=== PATIENT | female | born 1930 | race Caucasian/White ===

== ENCOUNTER 2017-03-31 09:37 | Inpatient (IN) | payer OTHER ==
[2017-03-31 09:49] VITALS: BMI 26.4
--- NOTE | 2017-03-31 12:32 | ED.PDOC ---
General ED Provider: Dr. AILYN NUNEZ Chief Complaint: Respiratory Complaint Stated Complaint: Cough, chest congestion, shortness of breath, weakness. Onset 1 week ago. Called PCP who discouraged OV due to multiple patients with flu and called in Rx of Tamiflu. Has not made any positive progress to improvement but feels worsened. Cough not productive.Diagnostic testing has not been completed. Time Seen by Physician: 12:30 Mode of Arrival: Wheelchair Information Source: Patient Exam Limitations: No limitations Primary Care Provider: AILYN FERRER Referred to ED by: Other (self/pcp) Nursing and Triage Documentation Reviewed and Agree: Yes Reviewed sepsis parameters & appropriate labs ordered?: Yes System Inflammatory Response Syndrome: Not Applicable Sepsis Protocol: For patient's 13 years and over: Temp is 96.8 and below OR 101 and greater Pulse >90 BPM Resp >20/minute Acutely Altered Mental Status Are patient's symptoms suggestive of a new infection, such as: -Pneumonia -Skin, Soft Tissue -Endocarditis -UTI -Bone, Joint Infection -Implantable Device -Acute Abdominal Infection -Wound Infection -Meningitis -Blood Stream Catheter Infection -Unknown Respiratory Complaint Exam - Respiratory Complaint/Exam Symptoms Are: Still present, Worse Timing: Constant Initial Severity: Moderate Current Severity: Moderate Location: Chest Character: Reports: Non-productive cough, Dry cough Aggravating: Reports: Exertion, Recumbent position Alleviating: Reports: None Associated Signs and Symptoms: Reports: Dyspnea, Fever, Wheezing. Denies: Chest pain, Pleuritic chest pain, Hemoptysis, Dizziness, Calf pain, Sinus discomfort, Vomiting, Sore throat, Weight loss, Decreased oral intake, Increased thirst, Increased appetite, Increased urination History of Healthcare-Acquired Pneumonia: No Review of Systems - Review Of Systems Constitutional: Reports: Chills, Fever Eyes: Reports: No symptoms Cardiac: Reports: No symptoms GI: Reports: No symptoms : Reports: No symptoms Musculoskeletal: Reports: No symptoms Skin: Reports: No symptoms Neurological: Reports: No symptoms Endocrine: Reports: No symptoms Hematologic/Lymphatic: Reports: No symptoms All Other Systems: Reviewed and Negative Past Medical History - Past Medical History Endocrine: Reports: Dyslipidemia Cardiovascular: Reports: Hypertension Respiratory: Reports: None Hematological: Reports: None Gastrointestinal: Reports: None Genitourinary: Reports: CKD Neuro/Psych: Reports: TIA Musculoskeletal: Reports: Arthritis, Back Pain Cancer: Reports: None Last Menstrual Period: unknown Other Pertinent Past Medical History: GALLBLADDER, TOTAL KNEE, PACEMAKER, BACK SURGERY - Surgical History General Surgical History: Reports: Cholecystectomy, Pacemaker, Orthopedic ( TOTAL KNEE), Back Surgery - Family History Family History: Reports: Unknown - Social History Smoking Status: Never smoker Hx Substance Use: No Alcohol Screening: None Physical Exam - Physical Exam Appearance: Thin Ill-appearing: Moderate Pain Distress: Mild Eyes: GENA, EOMI, Conjunctiva clear ENT: Ears normal, Nose normal Neck: Nonsupple Respiratory: Airway patent, Rhonchi, Retractions Cardiovascular: RRR, Pulses normal GI/: Soft, Nontender, No masses, Bowel sounds normal Musculoskeletal: Normal strength, ROM intact Skin: Warm, Dry, Pale Neurological: Sensation intact, Alert, Oriented Psychiatric: Mood appropriate, Anxious Critical Care Note - Critical Care Note Total Time (mins): 30 Course - Course Hematology/Chemistry: 03/31/17 12:58 03/31/17 12:58 Orders, Labs, Meds: Lab Review 03/31/17 03/31/17 03/31/17 12:42 12:58 12:58 WBC 4.77 RBC 4.21 Hgb 12.3 Hct 37.3 MCV 88.6 MCH 29.2 MCHC 33.0 RDW Coeff of Pat 13.7 Plt Count 163 Immature Gran % (Auto) 0.2 Neut % (Auto) 54.3 Lymph % (Auto) 27.7 [place] % (Auto) 13.0 H Eos % (Auto) 4.2 Baso % (Auto) 0.6 Immature Gran # (Auto) 0.0 Neut # 2.6 Lymph # 1.3 [place] # 0.6 Eos # 0.2 Baso # 0.0 Puncture Site O2 Saturation ABG pH ABG pCO2 ABG pO2 ABG HCO3 ABG Total CO2 ABG Base Excess Pavel Test FiO2 % Sodium 143 Potassium 3.4 L Chloride 102 Carbon Dioxide 34 H Anion Gap 10.4 BUN 14 Creatinine 0.82 Estimated GFR (MDRD) 66.00 BUN/Creatinine Ratio 17.07 Glucose 92 Calcium 9.2 Total Bilirubin 0.3 AST 31 ALT 24 Alkaline Phosphatase 90 Total Protein 6.8 Albumin 3.2 L Globulin 3.6 Albumin/Globulin Ratio 0.89 Urine Color Yellow Urine Clarity Clear Urine pH 7.0 Ur Specific [place] 1.015 Urine Protein Negative Urine Glucose (UA) Negative Urine Ketones Negative Urine Blood Negative Urine Nitrite Negative Urine Bilirubin Negative Urine Urobilinogen 0.2 Ur Leukocyte Esterase Negative Influenza A (Rapid) Influenza B (Rapid) 03/31/17 03/31/17 14:00 14:30 WBC RBC Hgb Hct MCV MCH MCHC RDW Coeff of Pat Plt Count Immature Gran % (Auto) Neut % (Auto) Lymph % (Auto) [place] % (Auto) Eos % (Auto) Baso % (Auto) Immature Gran # (Auto) Neut # Lymph # [place] # Eos # Baso # Puncture Site R rad O2 Saturation 93.0 L ABG pH 7.502 H* ABG pCO2 39.4 ABG pO2 60.0 L ABG HCO3 30.9 H ABG Total CO2 32 H ABG Base Excess 8 H Pavel Test + FiO2 % 21.0 Sodium Potassium Chloride Carbon Dioxide Anion Gap BUN Creatinine Estimated GFR (MDRD) BUN/Creatinine Ratio Glucose Calcium Total Bilirubin AST ALT Alkaline Phosphatase Total Protein Albumin Globulin Albumin/Globulin Ratio Urine Color Urine Clarity Urine pH Ur Specific [employer] [place] Urine Protein Urine Glucose (UA) Urine Ketones Urine Blood Urine Nitrite Urine Bilirubin Urine Urobilinogen Ur Leukocyte Esterase Influenza A (Rapid) Negative by naat Influenza B (Rapid) Negative by naat Orders Category Date Time Status ABG DRAW REQUEST Stat CARDIO 03/31/17 13:37 Completed EKG-(ED ONLY) Stat CARDIO 03/31/17 12:39 Completed NEBULIZER TREATMENT Stat CARDIO 03/31/17 12:40 Completed ABG Stat LAB 03/31/17 14:00 Completed CBC W/ AUTO DIFF Stat LAB 03/31/17 12:58 Completed COMPREHENSIVE METABOLIC PANEL Stat LAB 03/31/17 12:58 Completed FLU A & B RAPID TEST [MOLECULAR FLU A/B] Stat LAB 03/31/17 14:30 Completed SPUTUM CULTURE Stat LAB 03/31/17 12:39 Uncollected URINALYSIS C & S IF INDICATED Stat LAB 03/31/17 12:42 Completed Albuterol Sulfate 0.083% Neb [Albuterol 0.083% Neb] MEDS 03/31/17 12:39 Discontinued 1 vial NEB ONCE STA CHEST, 2 VIEWS PA & LAT Stat RADS 03/31/17 12:39 Completed Medications Generic Name Dose Route Start Last Admin Trade Name Freq PRN Reason Stop Dose Admin Acetaminophen 650 mg 03/31/17 17:08 Tylenol PO Q6H PRN MODERATE PAIN Clopidogrel Bisulfate 75 mg 12/29/17 09:00 Plavix PO DAILY [facility] Furosemide 40 mg 04/01/17 09:00 Lasix Tab PO DAILY [facility] Gabapentin 100 mg 03/31/17 21:00 Neurontin PO BID DAVID Levofloxacin/Dextrose 500 mg/ 100 mls @ 100 mls/hr 03/31/17 17:30 Sterile Water IV DAILY DAVID Lorazepam 1 mg 03/31/17 21:00 Ativan PO BEDTIME DAVID Metoprolol Tartrate 25 mg 03/31/17 21:00 Lopressor PO BID DAVID Non-Formulary Medication 1 each 03/31/17 21:00 Amlodipine Besylate/Benazepril [Lotrel 10-40 Mg Capsule] PO BEDTIME DAVID Non-Formulary Medication 0.1 mg 03/31/17 21:00 Clonidine Hcl [Catapres] PO BID DAVID Non-Formulary Medication 1 each 04/01/17 09:00 Multivitamin,Ther And Minerals [Vitamin And Minerals] PO DAILY [facility] Pantoprazole Sodium 40 mg 04/01/17 09:00 Protonix PO DAILY [facility] Polyethylene Glycol 17 gm 03/31/17 21:00 Miralax PO BEDTIME [facility] Potassium Chloride 10 meq 04/01/17 09:00 K-Dur PO DAILY [facility] Discontinued Medications Generic Name Dose Route Start Last Admin Trade Name Freq PRN Reason Stop Dose Admin Albuterol Sulfate 1 vial 03/31/17 12:39 03/31/17 12:51 Albuterol 0.083% [facility] 03/31/17 12:40 1 vial ONCE STA Administration Albuterol Sulfate 1 vial 03/31/17 17:03 03/31/17 17:10 Albuterol 0.083% Neb [facility] 03/31/17 17:04 1 vial ONCE STA Administration Vital Signs: Temp Pulse Resp BP Pulse Ox 03/31/17 09:38 98.8 F 67 20 138/79 92 L Departure - Departure Time of Disposition: 17:29 Disposition: HOME SELF-CARE Discharge Problem: Community acquired bacterial pneumonia Discharge Problem: (Ruled Out): Lumbar radiculopathy, acute Condition: Serious Pt referred to PMD for follow-up: No Allergies/Adverse Reactions: Allergies cephalexin Adverse Reaction (Verified 03/31/17 09:49) clarithromycin Adverse Reaction (Verified 03/31/17 09:49) codeine Adverse Reaction (Verified 03/31/17 09:49) lamotrigine Adverse Reaction (Verified 03/31/17 09:49) meperidine Adverse Reaction (Verified 03/31/17 09:49) Home Medications: Ambulatory Orders Acetaminophen [Tylenol] 650 mg PO Q8H PRN 10/03/13 Amlodipine Besylate/Benazepril [Lotrel 10-40 mg Capsule] 1 each PO BEDTIME 10/03 Clonidine HCl [Catapres] 0.1 mg PO BID 10/03/13 Furosemide [Lasix Tab] 40 mg PO DAILY 10/03/13 Gabapentin [Neurontin] 100 mg PO BID PRN 10/03/13 Lorazepam 1 mg PO BEDTIME 10/03/13 Lovastatin [Mevacor] 20 mg PO BEDTIME 10/03/13 Polyethylene Glycol 3350 [Miralax] 17 gm PO BEDTIME PRN 10/03/13 Clopidogrel Bisulfate [Plavix] 75 mg PO DAILY #30 tablet 10/12/13 Metoprolol Tartrate [Lopressor] 25 mg PO BID 10/30/15 Hydrocodone/Acetaminophen [Hydrocodon-Acetaminophen 5-325] 1 each PO Q8HR PRN Multivitamin,Ther and Minerals [Vitamin and Minerals] 1 each PO DAILY 03/31/17 Pantoprazole Sodium [Protonix] 40 mg PO DAILY 03/31/17 Potassium Chloride [K-Dur] 10 meq PO DAILY 03/31/17
[2017-03-31] MEDS ORDERED: ALBUTEROL 0.083% NEB NEB STA ×2 (12:39→17:03)
--- NOTE | 2017-03-31 13:44 | DI ---
Exam: Two x-rays of the chest. Comparison: 08/28/2013. Reason for exam: Chest congestion. FINDINGS: No pneumothorax or pleural effusion. There is mild blunting of the left costophrenic angle . The cardiac silhouette remains prominent in size. Operative changes are seen after implanted intr acardiac device placement. Impression: 1. Blunting of the left costophrenic angle likely accentuated by patient positioning may represent m ild atelectasis or pneumonia. 2. Persistent cardiomegaly.
[2017-03-31] MEDS ORDERED: ALBUTEROL 0.083% NEB NEB ONE (17:09)
[2017-03-31] MEDS: LEVAQUIN 500 MG in PREMIX 100 ML WATER 1 BAG IV SCH (17:45)
[2017-03-31] MEDS: XOPENEX 1.25 MG NEB SCH ×2 (17:52→23:07)
[2017-03-31] MEDS ORDERED: ATIVAN ONE (20:33)
[2017-03-31] MEDS ORDERED: CATAPRES ONE (20:33)
[2017-03-31] MEDS ORDERED: LOTENSIN ONE (20:34)
[2017-03-31] MEDS ORDERED: NORVASC ONE (20:34)
[2017-03-31] MEDS: MIRALAX PO SCH (20:50)
[2017-03-31] MEDS: LOPRESSOR PO SCH (20:50)
[2017-03-31] MEDS: TYLENOL PO PRN (20:50)
[2017-03-31] MEDS: NEURONTIN PO SCH (20:50)
[2017-03-31] MEDS ORDERED: AMLODIPINE BESYLATE PO SCH ×2 (21:00)
[2017-03-31] MEDS ORDERED: ATIVAN PO SCH (21:00)
[2017-03-31] MEDS ORDERED: [UNRECOGNIZED DRUG - OTHER] PO SCH ×2 (21:00)
[2017-03-31] MEDS ORDERED: CLONIDINE HCL 0.1 MG PO SCH (21:00)
[2017-03-31] MEDS ORDERED: BENAZEPRIL PO SCH ×2 (21:00)
[2017-04-01] MEDS: XOPENEX 1.25 MG NEB SCH ×4 (05:36→23:08)
[2017-04-01] MEDS: LEVAQUIN 500 MG in PREMIX 100 ML WATER 1 BAG IV SCH (08:42)
[2017-04-01] MEDS: NEURONTIN PO SCH ×2 (08:42→21:12)
[2017-04-01] MEDS: PLAVIX PO SCH (08:43)
[2017-04-01] MEDS: LASIX TAB PO SCH (08:43)
[2017-04-01] MEDS: CATAPRES PO SCH ×2 (08:43→21:12)
[2017-04-01] MEDS: PROTONIX PO SCH (08:43)
[2017-04-01] MEDS: MULTIVITAMIN TABLET PO SCH (08:43)
[2017-04-01] MEDS: PREDNISONE PO SCH (08:43)
[2017-04-01] MEDS: LOPRESSOR PO SCH ×2 (08:43→21:11)
[2017-04-01] MEDS: MICRO-K CAP PO SCH (08:44)
[2017-04-01] MEDS ORDERED: MULTIVITAMIN THER AND MINERALS PO SCH (09:00)
[2017-04-01] MEDS ORDERED: K-DUR PO SCH (09:00)
--- NOTE | 2017-04-01 11:04 | DI ---
EXAM: Chest two views HISTORY: Follow up pneumonia COMPARISON: 03/31/2017 TECHNIQUE: Two views of the chest were performed FINDINGS: Left-sided cardiac pacer. Heart mildly enlarged and unchanged. Mediastinal contour uncha nged. No visible pneumothorax. Blunting left costophrenic angle likely small pleural effusion. No a irspace consolidation and. IMPRESSION: Mild cardiomegaly. Probable small left pleural effusion. No airspace consolidation.
[2017-04-01] MEDS: TYLENOL PO PRN (16:41)
[2017-04-01] MEDS: NORVASC PO SCH (21:11)
[2017-04-01] MEDS: ATIVAN PO SCH (21:11)
[2017-04-01] MEDS: MIRALAX PO SCH (21:11)
[2017-04-01] MEDS: LOTENSIN PO SCH (21:11)
[2017-04-02] MEDS: XOPENEX 1.25 MG NEB SCH ×3 (04:10→17:02)
[2017-04-02] MEDS: LASIX TAB PO SCH (05:44)
[2017-04-02] MEDS: PROTONIX PO SCH (05:44)
[2017-04-02] MEDS: LEVAQUIN 500 MG in PREMIX 100 ML WATER 1 BAG IV SCH (10:07)
[2017-04-02] MEDS: CATAPRES PO SCH ×2 (10:07→21:46)
[2017-04-02] MEDS: MULTIVITAMIN TABLET PO SCH (10:07)
[2017-04-02] MEDS: NEURONTIN PO SCH ×2 (10:07→21:48)
[2017-04-02] MEDS: MICRO-K CAP PO SCH (10:07)
[2017-04-02] MEDS: LOPRESSOR PO SCH ×2 (10:07→21:46)
[2017-04-02] MEDS: PLAVIX PO SCH (10:07)
[2017-04-02] MEDS: PREDNISONE PO SCH (10:07)
[2017-04-02] MEDS ORDERED: K-DUR PO STA (16:47)
[2017-04-02] MEDS ORDERED: DOXY-100 100 MG in SODIUM CHLORIDE 100 ML IV SCH (21:00)
[2017-04-02] MEDS: SOLU-MEDROL 40 MG IVP SCH ×2 (21:11→23:19)
[2017-04-02] MEDS: MIRALAX PO SCH (21:45)
[2017-04-02] MEDS: ATIVAN PO SCH (21:45)
[2017-04-02] MEDS: LOTENSIN PO SCH (21:47)
[2017-04-02] MEDS: NORVASC PO SCH (21:48)
[2017-04-02] MEDS ORDERED: AZACTAM ONE (21:56)
[2017-04-02] MEDS: AZACTAM 1 GM in SODIUM CHLORIDE 50 ML IV SCH (21:58)
[2017-04-02] MEDS: MUCINEX PO SCH (21:59)
[2017-04-02] MEDS ORDERED: DOXY-100 100 MG in SODIUM CHLORIDE 250 ML IV SCH (22:00)
[2017-04-02] MEDS ORDERED: SODIUM CHLORIDE 250 ML IV ONE (23:36)
[2017-04-03] MEDS: DUONEB NEB SCH ×7 (00:07→21:36)
[2017-04-03] MEDS: MUCINEX PO SCH ×3 (02:28→21:02)
[2017-04-03] MEDS ORDERED: AZACTAM ONE (04:00)
[2017-04-03] MEDS: AZACTAM 1 GM in SODIUM CHLORIDE 50 ML IV SCH ×3 (04:13→21:07)
[2017-04-03] MEDS: PROTONIX PO SCH (05:48)
[2017-04-03] MEDS: LASIX TAB PO SCH (05:48)
[2017-04-03] MEDS: SOLU-MEDROL 40 MG IVP SCH ×3 (06:06→21:06)
[2017-04-03] MEDS: DOXY-100 100 MG in SODIUM CHLORIDE 100 ML IV SCH ×2 (09:14→22:21)
[2017-04-03] MEDS: LOPRESSOR PO SCH ×2 (09:15→21:01)
[2017-04-03] MEDS: NEURONTIN PO SCH ×2 (09:15→21:02)
[2017-04-03] MEDS: K-DUR PO SCH (09:15)
[2017-04-03] MEDS: PLAVIX PO SCH (09:15)
[2017-04-03] MEDS: CATAPRES PO SCH ×2 (09:15→21:02)
[2017-04-03] MEDS: MULTIVITAMIN TABLET PO SCH (09:15)
[2017-04-03] MEDS ORDERED: LASIX IVP STA (20:07)
[2017-04-03] MEDS ORDERED: ATIVAN PO SCH (20:10)
--- NOTE | 2017-04-03 20:45 | CT ---
EXAM: Noncontrast CT of the chest HISTORY: Cough COMPARISON: 07/31/2016 chest x-ray TECHNIQUE: Noncontrast CT of the chest FINDINGS: There is mild biapical scarring. There is minimal bilateral lower lobe dependent atelectasis. Minim al lingular atelectasis is also present. No pneumothorax, pleural effusion or focal consolidation is identified. A right upper lobe calcified granuloma is seen. The heart is enlarged. There is a left chest wall pacing device. Atherosclerotic calcifications are present including the coronary arteries. No mediastinal lymphadenopathy is seen. Evaluation of the nikia suboptimal without IV contrast. Left hilar calcified lymph nodes are present. There is a 1.2 cm left renal mid to superior pole exophytic lesion measuring mildly more dense a simp le cyst. There are mild degenerative changes of the thoracic spine. There are more prominent degene rative changes of the cervical spine. IMPRESSION: No acute cardiopulmonary findings. Cardiomegaly. Bilateral areas of minimal atelectasis. Mild biapical scarring. Atherosclerosis including the coronary arteries. Evidence of prior granulomatous infection 1.2 cm left renal lesion measuring mildly more dense than simple cyst. Followup ultrasound recommend ed to confirm a cystic etiology.
[2017-04-03] MEDS: MIRALAX PO SCH (20:59)
[2017-04-03] MEDS: NORVASC PO SCH (21:00)
[2017-04-03] MEDS: LOTENSIN PO SCH (21:01)
[2017-04-03] MEDS ORDERED: SODIUM CHLORIDE 500 ML IV STA (22:29)
[2017-04-03] MEDS ORDERED: LOVENOX SUBCUT SCH (22:30)
[2017-04-03] MEDS: HUMULIN R SUBCUT PRN (23:59)
--- NOTE | 2017-04-04 00:03 | ED.PDOC ---
Procedures - IV/Art Line Insertion Location: rt wrist Type of Line: Peripheral IV Invasive Line/IV Catheter Gauge: 20 Number of Attempts: 1 Blood Return Positive: Yes Invasive Line/IV Flushes Without Difficulty: Yes Conscious Sedation - Pre-op Assessment Weight: 135 lb Surgical History: GALLBLADDER, TOTAL KNEE, PACEMAKER, BACK SURGERY - Medical History Past Medical History: Hypertension, High Lipids, Kidney Disease, TIA
[2017-04-04] MEDS ORDERED: LOVENOX ONE (00:36)
--- NOTE | 2017-04-04 00:56 | CT ---
EXAM: CT angiogram chest with intravenous contrast 04/04/2017. Multi planar reformatted images obta ined. MIP and three-dimensional reconstructed images provided HISTORY: Shortness of air COMPARISON: 04/03/2017 FINDINGS: Moderate cardiomegaly. No pericardial effusion. The aorta shows no acute abnormality. Atherosclerotic vascular disease. There are no pulmonary arterial filling defects to suggest pulmonary embolus. Bilateral apical scarring. Multifocal atelectasis most prominent in the dependent aspect of both sujata gs. Benign post inflammatory calcifications. Exophytic lesion in the left kidney is most compatible with benign cyst as visualized on ultrasound 0 10/31/2014. IMPRESSION: 1. No evidence of pulmonary embolus. 2. Cardiomegaly. 3. Atelectasis. 4. Bilateral apical scarring 5. Atherosclerotic vascular disease. 6. Benign postinflammatory calcifications. 7. Benign left renal cyst.
[2017-04-04] MEDS ORDERED: SODIUM CHLORIDE 1,000 ML IV SCH (01:00)
[2017-04-04] MEDS: DUONEB NEB SCH ×3 (04:15→16:50)
[2017-04-04] MEDS: AZACTAM 1 GM in SODIUM CHLORIDE 50 ML IV SCH ×2 (06:41→13:43)
[2017-04-04] MEDS: PROTONIX PO SCH (06:42)
[2017-04-04] MEDS: LASIX TAB PO SCH (06:42)
[2017-04-04] MEDS: HUMULIN R SUBCUT PRN ×3 (06:51→17:05)
[2017-04-04] MEDS: MUCINEX PO SCH (08:56)
[2017-04-04] MEDS: K-DUR PO SCH (08:56)
[2017-04-04] MEDS: LOPRESSOR PO SCH (08:56)
[2017-04-04] MEDS: CATAPRES PO SCH (08:56)
[2017-04-04] MEDS: SOLU-MEDROL 40 MG IVP SCH (08:56)
[2017-04-04] MEDS: NEURONTIN PO SCH (08:56)
[2017-04-04] MEDS: MULTIVITAMIN TABLET PO SCH (08:56)
[2017-04-04] MEDS ORDERED: ATIVAN IVP STA (14:01)
[2017-04-04] MEDS ORDERED: TESSALON PERLES PO SCH (15:00)
[2017-04-04 18:37] VITALS: BP 133/63; TEMP 98.1
[2017-04-04] MEDS ORDERED: LOVENOX SUBCUT SCH (21:00)
== END 2017-04-04 19:00 | DRG 203 ==
LOC: ED 09:37 → MEDSURG A 16:00
PROVIDERS: ADMIT Family Medicine; ATTEND Family Medicine
DX: J20.9 Acute bronchitis, unspecified (principal)
CPT/HCPCS: 36415; 80048; 80053; 81001; 82803; 82962; 83880; 85007; 85025; 85379; 87040; 87502; 93005; 93010; 94640; 96365; 99284

== ENCOUNTER 2017-04-04 19:05 | Outpatient (CLI) | END 2017-04-04 19:06 | disposition short-term general hospital (02) | LOC: AMBL 19:05 | PROVIDERS: ATTEND Family Medicine | DX: J18.9 Pneumonia, unspecified organism (principal); R06.9 Unspecified abnormalities of breathing ==

== ENCOUNTER → 2017-05-17 | Outpatient (POV) | LOC: OUTPT 00:01 | PROVIDERS: ATTEND Otolaryngology | DX: H69.90 Unspecified Eustachian tube disorder, unspecified ear (principal) ==